=== PATIENT | male | born 1950 | race Caucasian/White ===

== ENCOUNTER 2018-06-29 09:18 | Day surgery (SDC) | payer MEDICARE, BC ==
[2018-06-23 14:50] VITALS: BMI 27.6
[~2018-06-29 09:18] MED LIST: MORPHINE SULFATE 2 MG/ML SYRINGE IV PRN; TOBRA-DEXAMET 0.3-0.1% OPHTH OINT 3.5 GM TUBE OPHTHALMIC NR
[2018-06-29 10:39] VITALS: RESP 20; TEMP 97.6
[2018-06-29] MEDS: PHENYLEPHRINE 10% OPHTH DROPS 5 ML BTL OP ONE ×3 (10:41→10:59)
[2018-06-29] MEDS: CYCLOPENTOLATE 1% OPHTH SOLN 2 ML BTL OP ONE ×3 (10:44→11:02)
[2018-06-29] MEDS: LACTATED RINGERS 1,000 ML IV SCH ×2 (10:44→11:27)
[2018-06-29] MEDS ORDERED: LIDOCAINE 1% 20 ML VIAL (10MG/ML) FOR IV START INTRADERMA ONE (10:44)
[2018-06-29] MEDS: KETOROLAC 0.5% OPHTH DROPS 5 ML BTL OP ONE ×3 (10:47→11:05)
[2018-06-29] MEDS ORDERED: MIDAZOLAM 2 MG/2 ML VIAL ONE (11:28)
[2018-06-29] MEDS ORDERED: PROPOFOL 10 MG/ML 20 ML VIAL IV ONE (11:28)
[2018-06-29] MEDS ORDERED: HYALURONATE SODIUM INTRAOCULAR 1 EACH SYRINGE (10MG/ML) INTRAOCULA ONE (11:43)
[2018-06-29] MEDS ORDERED: BALANCED SALT IRRIG SOLN COMB2 15 ML IRRIG.SOLN INTRAOCULA ONE (11:43)
[2018-06-29] MEDS ORDERED: EPINEPHrine (PF) 0.5 ML in BALANCED SALT IRRIG SOLN COMB2 500 ML IRRIGATION ONE (11:44)
--- NOTE | 2018-06-29 11:53 | P.OP ---
Date of Procedure: 06/29/18 Procedure(s) Performed: PREOPERATIVE DIAGNOSIS: Cataract, right eye. POSTOPERATIVE DIAGNOSIS: Cataract, right eye. OPERATION: Phacoemulsification of cataract, intraocular lens placement, right eye. DESCRIPTION OF PROCEDURE: The patient was taken to the operating room. Intravenous Propofol was given so as to bring about sedation. The following mixture was given for local anesthesia: 5 mL of 2% lidocaine, 5 mL of 0.75% Marcaine, and 1 mL of Wydase. Approximately 4 mL was injected in the retrobu lbar space of the surgical eye. Additional 1 mL was then directed to the temporal area of the surgical eye. This was performed to allow adequate neurological block of the facial muscles. The patient was revived. The patient was prepped and draped in the usual sterile manner for the operative eye. A lid speculum was put into position. The conjunctiva was resected back from the limbus in the 12 o'clock position. Bleeding was controlled with electrocautery. A #69 blade was then used and a half-thickness scleral incision approximately 1-mm posterior to the limbus was made on bare sclera. This was shelved in the clear cornea using a crescent knife. Next a 15-degree blade was used to make a stab incision at the 3 o'clock position at the corneolimbal interface. A keratome blade was then used and the superior wound was extended into the anterior chamber. Viscoelastic was injected into the anterior chamber to maintain its form. A cystotome was used and a continuous anterior capsu lotomy was made. Hydrodissection of the lens cortex using a blunt cannula and BSS was performed. A phaco probe was then introduced and a groove extending from 12 to 6 o'clock in the lens was created. A Thom wand was used through the stab incision and used to perform a divide and conquer dismantling of the cataract. An irrigation aspiration probe was utilized and any residual cortex was removed from the eye. Again, viscoelastic was injected into the anterior chamber. An Scout posterior chamber lens implant was placed in a delivery cartridge and injected into the anterior chamber. A Sinskey hook was utilized to spin the lens into position within the capsular bag. The irrigation and aspiration probe was again introduced and any residual viscoelastic was removed from the eye. BSS was injected via blunt canula into the limbal stab incision and the anterior chamber was re-inflated. The conjunctiva was reapproximated using electrocautery. One drop of 0.25% Timoptic was placed over the corneal along with an antibiotic ophthalmic ointment. Two sterile patches and a Dong eye shield were taped into position. The patient was transported to the recovery room in stable condition. Pathology: none sent Condition: stable Disposition: same day
[2018-06-29 12:29] VITALS: BP 146/70; PULSE 68
[2018-06-29] MEDS ORDERED: BUPIVACAINE (PF) 0.75% 5 ML, HYALURONIDASE, HUMAN RECOMB 150 UNIT, LIDOCAINE 2% (PF) 10... MISCELLANE ONE ×3 (23:00)
[2018-06-29] MEDS ORDERED: TIMOLOL 0.5% OPHTH DROPS 5 ML BTL OP ONE (23:00)
== END 2018-06-29 12:30 | disposition home or self-care (01) ==
LOC: OR 09:18
PROVIDERS: ATTEND Ophthalmology
DX: H26.9 Unspecified cataract (principal); I10 Essential (primary) hypertension; G47.33 Obstructive sleep apnea (adult) (pediatric); F17.210 Nicotine dependence, cigarettes, uncomplicated; Z88.8 Allergy status to other drugs, medicaments and biological substances; Z79.82 Long term (current) use of aspirin; Z79.899 Other long term (current) drug therapy
CPT/HCPCS: 66984; V2632; J2250; J3470; J2001; J0171; J2704